=== PATIENT | male | born 1985 | race Caucasian/White ===

== ENCOUNTER 2023-12-11 00:13 | Emergency (ER) | payer SELFPAY ==
[~2023-12-11] VITALS: Ht 182.8 cm; Wt 102.1 kg
[~2023-12-11 00:13] MED LIST: AMOXICILLIN500 MG PO; CLINDAMYCIN HC300 MG PO; FLEXERIL5 MG PO; HYDROCODONE BIT1 T11 PO; MOTRIN800 MG PO; NKHM; PEN-VEE K500 MG PO; PENICILLIN VK500 MG PO; VICODIN ES 7501 TAB PO
[2023-12-11] MEDS ORDERED: Amoxicillin/Clavulanate Pota 875 MG TAB PO ONE (00:25)
[2023-12-11] MEDS ORDERED: Ketorolac Tromethamine 15 MG/ML VIAL IM ONE (00:25)
[2023-12-11] MEDS ORDERED: MELOXICAM15 MG PO (00:27)
[2023-12-11] MEDS ORDERED: AMOX-CLAV 875-1 EACH PO (00:27)
== END 2023-12-11 00:36 | disposition home or self-care (01) ==
LOC: ED 00:13
DX: K04.7 Periapical abscess without sinus (principal); K02.9 Dental caries, unspecified; F17.200 Nicotine dependence, unspecified, uncomplicated